=== PATIENT | male | born 1995 | race Caucasian/White ===

== ENCOUNTER 2023-12-11 16:02 | Emergency (ER) | payer OTHER ==
--- NOTE | 2023-12-11 16:16 | ED ---
Fall HPI - General Chief Complaint: Fall Stated Complaint: ETOH/Fall Time Seen by Provider: 12/11/23 16:05 Source: patient Mode of arrival: EMS Limitations: altered mental status - History of Present Illness MD Complaint: fall -: minutes(s) Fall From: standing When Fall Occurred: just prior to arrival Fall Witnessed: no Place Fall Occurred: street Loss of Consciousness: unsure Prolonged Down Time?: unclear Symptoms Prior to Fall: none Location: head Severity: moderate Context: alcohol use Associated Symptoms: headache - Related Data Home Medications Medication Instructions Recorded Confirmed No Known Home Medications 12/11/23 12/11/23 Allergies Allergy/AdvReac Type Severity Reaction Status Date / Time No Known Allergies Allergy Unverified 12/11/23 17:33 Review of Systems ROS Statement: Those systems with pertinent positive or pertinent negative responses have been documented in the HPI. ROS Other: All systems not noted in ROS Statement are negative. Constitutional: Denies: fever, chills, weakness Eyes: Denies: vision change Respiratory: Denies: cough, dyspnea Cardiovascular: Denies: chest pain, palpitations Gastrointestinal: Reports: nausea. Denies: abdominal pain, vomiting, diarrhea Musculoskeletal: Denies: back pain, joint swelling, arthralgia Skin: Denies: rash Neurological: Reports: headache, confusion. Denies: weakness, numbness Hematological/Lymphatic: Denies: easy bleeding General Exam Limitations: no limitations General appearance: alert, in no apparent distress, appears intoxicated Head exam: Present: normocephalic, other (And has approximately 6 cm hematoma to the right of the occiput with moderate tenderness. No obvious deformity) Eye exam: Present: PERRL, EOMI, nystagmus. Absent: scleral icterus, conjunctival injection Neck exam: Present: normal inspection, tenderness, other (Cervical collar). Absent: meningismus Respiratory exam: Present: normal lung sounds bilaterally. Absent: respiratory distress, wheezes, rales, rhonchi, stridor, chest wall tenderness, accessory muscle use Cardiovascular Exam: Present: normal rhythm, tachycardia (Rate 108 at my exam), normal heart sounds. Absent: systolic murmur, diastolic murmur, rubs, gallop GI/Abdominal exam: Present: soft. Absent: distended, tenderness, guarding, rebound, rigid, mass Extremities exam: Present: normal inspection, normal capillary refill. Absent: pedal edema, calf tenderness Neurological exam: Present: alert, oriented X3, CN II-XII intact, other (Mild ataxia) Skin exam: Present: warm, dry, intact, normal color. Absent: rash Course Vital Signs 12/11/23 12/11/23 16:04 19:12 Temperature 99.1 F Pulse Rate 110 H 74 Respiratory 16 18 Rate Blood Pressure 145/93 118/77 O2 Sat by Pulse 95 95 Oximetry Medical Decision Making - Medical Decision Making Patient here to have evaluation after falling. CT is obtained because there is moderate hematoma and concern for skull fracture The patient had CT scan of the brain and C-spine that I interpreted as negative for acute bony injury. Negative for acute intracranial hemorrhage. Was pt. sent in by a medical professional or institution (, PA, LANDCARE FACILITATOR, urgent care, hospital, or longterm...) When possible be specific @ -[No] Did you speak to anyone other than the patient for history (EMS, parent, family, police, friend...)? What history was obtained from this source @ -[Must give history Did you review nursing and triage notes (agree or disagree)? Why? @ -[I reviewed and agree with nursing and triage notes] Were old charts reviewed (outside hosp., previous admission, EMS record, old EKG, old radiological studies, urgent care reports/EKG's, longterm records)? Report findings @ -[No old charts were reviewed] Differential Diagnosis (chest pain, altered mental status, abdominal pain women, abdominal pain men, vaginal bleeding, weakness, fever, dyspnea, syncope, headache, dizziness, GI bleed, back pain, seizure, CVA, palpatations, mental health, musculoskeletal)? @ -[Differential Altered Mental Status: Hypoglycemia, DKA, hypercapnia, ETOH, overdose, CO poisoning, trauma, myxedema coma, HTN encephalopathy, infection, encephalitis, psychosis, intercranial hemorrhage, hepatic encephalopathy, meningitis, CVA, this is not meant to be an all-inclusive list EKG interpreted by me (3pts min.). @ -[As above] X-rays interpreted by me (1pt min.). @ -[None done] CT interpreted by me (1pt min.). @ -[Interpreted as above U/S interpreted by me (1pt. min.). @ -[None done] What testing was considered but not performed or refused? (CT, X-rays, U/S, labs)? Why? @ -[None] What meds were considered but not given or refused? Why? @ -[None] Did you discuss the management of the patient with other professionals (professionals i.e. , PA, LANDCARE FACILITATOR, lab, RT, psych nurse, social media specialist, production editor, teacher, humane officer, top case assembler)? Give summary @ -[No] Was smoking cessation discussed for >3mins.? @ -[No] Was critical care preformed (if so, how long)? @ -[No] Were there social determinants of health that impacted care today? How? (Homelessness, low income, unemployed, alcoholism, drug addiction, transportation, low edu. Level, literacy, decrease access to med. care, usp, rehab)? @ -[No] Was there de-escalation of care discussed even if they declined (Discuss DNR or withdrawal of care, Hospice)? DNR status @ -[No] What co-morbidities impacted this encounter? (DM, HTN, Smoking, COPD, CAD, Cancer, CVA, ARF, Chemo, Hep., AIDS, mental health diagnosis, sleep apnea, morbid obesity)? @ -[None] Was patient admitted / discharged? Hospital course, mention meds given and route, prescriptions, significant lab abnormalities, going to OR and other pertinent info. @ -[As above Undiagnosed new problem with uncertain prognosis? @ -[No] Drug Therapy requiring intensive monitoring for toxicity (Heparin, Nitro, Insulin, Cardizem)? @ -[No] Were any procedures done? @ -[No] Diagnosis/symptom? @ -[Fall with head injury Alcohol intoxication Acute, or Chronic, or Acute on Chronic? @ -[Acute Uncomplicated (without systemic symptoms) or Complicated (systemic symptoms)? @ -[Uncomplicated Side effects of treatment? @ -[No] Exacerbation, Progression, or Severe Exacerbation? @ -[No] Poses a threat to life or bodily function? How? (Chest pain, [place], [place], pneumonia, PE, COPD, DKA, ARF, appy, cholecystitis, CVA, Diverticulitis, Homicidal, Suicidal, threat to staff... and all critical care pts) @ -[No] Disposition Clinical Impression: Fall, Head injury Disposition: HOME SELF-CARE Condition: Good Is patient prescribed a controlled substance at d/c from ED?: No Referrals: None,Stated [Primary Care Provider] - 1-2 days
--- NOTE | 2023-12-11 17:08 | CT ---
EXAMINATION TYPE: CT brain cspine wo con CT DLP: 2124.5 mGycm, Automated exposure control for dose reduction was used. DATE OF EXAM: 12/11/2023 4:40 PM COMPARISON: None. CLINICAL INDICATION:Male, 28 years old with history of fall injury; TECHNIQUE: Brain: Multiple axial CT images of the brain were obtained without IV contrast. Cspine: Axial CT images from the skull base to the inferior aspect of T2 we obtained without intraven ous contrast. Coronal and sagittal reformatted images were also reviewed. FINDINGS: Brain: Extra-axial spaces: No abnormal extra-axial fluid collections. Ventricular system: Mildly prominent, likely sequela of brain volume loss. Cerebral parenchyma: No increased attenuation to suggest acute intraparenchymal hemorrhage. The gra y-white matter interface appears maintained. There seems to be mild generalized atrophy with associa dodie prominence of the ventricles/CSF spaces; this is considered excessive for the patient's given age and clinical correlation with comparison to any prior available brain imaging may be of benefit. Whi te matter appears unremarkable by CT. Cerebellum: No acute abnormality. Mass effect: No evidence of mass effect or midline shift. Intracranial vasculature: Unremarkable Soft tissues: Superiorly and posteriorly on the right nearing the vertex, there is subcutaneous contu [place] with focal 2 x 1.2 cm hematoma within the scalp. Visualized orbits: Orbital contents appear grossly intact. Calvarium/osseous structures: No evidence of calvarial fracture. Paranasal sinuses and mastoid air cells: Mild mucosal thickening left maxillary, otherwise clear. Mil d nasal septal deviation towards the left. MRI is more sensitive for detecting acute processes such as infarct, and may be considered if clinica lly warranted. Cervical spine: Fracture: None seen. Osseous structures, spinal canal/neural foramina: Craniocervical junction is intact. No significant d egenerative changes, canal or foraminal narrowing is seen. Vertebral alignment: No traumatic malalignment. Straightening mild reversal of the normal cervical lo rdosis. Neck soft tissues: No acute finding.. Other: Lung apices show no acute infiltrate or pneumothorax. IMPRESSION: CT head: 1. Right posterior scalp contusion and small hematoma. 2. No calvarial fracture or acute intracranial abnormality. 3. Mild atrophy suggested, excessive for age. CT cervical spine: 1. No evidence of acute cervical spine fracture or traumatic malalignment. 2. Straightening and mild reversal of the normal cervical lordosis, can be seen with pain, positionin g, muscular spasm.
[2023-12-11 17:16] VITALS: TEMP 99.1
[2023-12-11 19:51] VITALS: BP 118/77; PULSE 74; RESP 18
== END 2023-12-11 21:26 | disposition home or self-care (01) ==
LOC: EC 16:02
DX: S00.03XA Contusion of scalp, initial encounter (principal); F10.129 Alcohol abuse with intoxication, unspecified; W18.30XA Fall on same level, unspecified, initial encounter
CPT/HCPCS: 70450; 72125; 99285